=== PATIENT | female | born 1975 | race Hispanic/Latino ===

== ENCOUNTER 2018-01-11 06:22 | Day surgery (SDC) | payer OTHER ==
[2018-01-07 14:46] VITALS: BP 108/69
[2018-01-07 14:53] LABS: BASOPHILS % (AUTO) 0.5 % (0.0-5.0); EOSINOPHILS % (AUTO) 1.9 % (0.0-8.0); HEMATOCRIT 39.3 % (36-48); LYMPHOCYTES % (AUTO) 29.3 % (21.0-51.0); MEAN CORPUSCULAR HEMOGLOBIN 29.2 pg (27.0-33.0); MEAN CORPUSCULAR HGB CONC 34.1 g/dL (32.0-36.0); MEAN CORPUSCULAR VOLUME 85.6 fL (79-99); MONOCYTES % (AUTO) 6.1 % (3.0-13.0); NEUTROPHILS % (AUTO) 62.2 % (40.0-77.0); PLATELET COUNT (AUTO) 311 K/uL (130-400); RED BLOOD CELL COUNT(AUTO) 4.59 MIL/uL (4.00-5.50); RED CELL DISTRIBUTION WIDTH 13.5 % (11.0-15.5); WHITE BLOOD COUNT (AUTO) 7.3 K/uL (4.8-10.8)
[2018-01-07 15:08] LABS: ALBUMIN 3.8 g/dL (3.5-5.0); BILIRUBIN,DIRECT 0.1 mg/dL (0.0-0.3); BILIRUBIN,TOTAL 0.3 mg/dL (0.2-1.0); TOTAL PROTEIN, SERUM 7.1 g/dL (6.0-8.3)
[2018-01-07 15:38] LABS: APPEARANCE,URINE Clear (CLEAR); BILIRUBIN,URINE Negative (NEGATIVE); COLOR,URINE Dark Yellow (YELLOW); GLUCOSE, URINE (UA) Negative (NEGATIVE); KETONES,URINE Trace mg/dL (NEGATIVE); LEUKOCYTE ESTERASE ,URINE Trace (NEGATIVE); NITRATE,URINE Negative (NEGATIVE); OCCULT BLOOD,URINE Moderate (NEGATIVE); PROTEIN,URINE Trace (NEGATIVE)
[2018-01-07 15:48] LABS: BACTERIA,URINE None Seen /HPF (None Seen); MUCUS,URINE Moderate LPF (None Seen); RBC,URINE 0-1 /HPF (0-1); WBC,URINE 0-1 /HPF (0-1)
[~2018-01-11] VITALS: Ht 154.9 cm; Wt 70.0 kg
[2018-01-11] VITALS (12 sets, daily range): BP systolic 101–124; BP diastolic 62–79
[~2018-01-11 06:22] MED LIST: DOCU100C33 PO; ESOM40CA54 PO; KETO10TA2 PO; ONDA4TAB10 SL; TYL3 PO
[2018-01-11] MEDS ORDERED: HEPARIN SODIUM 1000UNIT/ML 10ML VIAL ONE (06:46)
[2018-01-11] MEDS ORDERED: LACTATED RINGERS 1000ML 1,000 ML IV ONE (06:48)
[2018-01-11] MEDS ORDERED: GLYCOPYRROLATE 0.2 MG/ML 5 ML VIAL ONE (07:35)
[2018-01-11] MEDS ORDERED: NEOSTIGMINE 5MG/5ML SYR IV ONE (07:35)
[2018-01-11] MEDS ORDERED: PROPOFOL 10 MG/ML 20ML VIAL IV ONE (07:35)
[2018-01-11] MEDS ORDERED: LIDOCAINE PF 2% 5ML ABBOJECT ONE (07:35)
[2018-01-11] MEDS ORDERED: ONDANSETRON HCL 4 MG/2 ML VIAL ONE (07:35)
[2018-01-11] MEDS ORDERED: MIDAZOLAM HCL 1 MG/ML 2ML VIAL ONE (07:35)
[2018-01-11] MEDS ORDERED: DEXAMETHASONE SOD PHOSPHATE 10MG/ML 1ML VIAL ONE (07:35)
[2018-01-11] MEDS ORDERED: SUCCINYLCHOLINE 200MG/10ML SYR ONE (07:35)
[2018-01-11] MEDS ORDERED: FENTANYL CITRATE PF 50 MCG/1 ML 2ML VIAL ONE ×2 (07:35→09:35)
[2018-01-11] MEDS ORDERED: MEPERIDINE-PF 25 MG/ML SYG ONE (09:18)
[2018-01-11] MEDS ORDERED: KETOROLAC TROMETHAMINE 30MG/ML ONE (09:30)
== END 2018-01-11 11:00 | disposition home or self-care (01) ==
LOC: DAH 06:22
PROVIDERS: ATTEND Surgery
DX: K80.10 Calculus of gallbladder with chronic cholecystitis without obstruction (principal); Z79.899 Other long term (current) drug therapy; Z88.0 Allergy status to penicillin; Z82.49 Family history of ischemic heart disease and other diseases of the circulatory system; E66.9 Obesity, unspecified; G43.909 Migraine, unspecified, not intractable, without status migrainosus
CPT/HCPCS: 36415 ×2; 47562; 80053; 80076; 81001 ×2; 84703; 85025 ×2; 88304; 96372; 96374; 96375; 96376; 99284; A4450; A4600; A4649; C1769 ×4; J0330; J1100; J1644; J1885; J2001; J2175; J2250; J2270 ×2; J2405; J2550 ×2; J2704; J2710; J3010 ×2; J3490 ×2; J7030; J7040; J7120 ×2

== ENCOUNTER 2018-01-11 16:33 | Emergency (ER) | payer OTHER ==
[2018-01-11] MEDS ORDERED: PROMETHAZINE HCL 25 MG/ML 1ML AMPULE IM ONE ×2 (16:57→22:00)
[2018-01-11] MEDS ORDERED: MORPHINE SULFATE 4 MG/1ML SYG ONE ×2 (16:58→22:00)
[2018-01-11] MEDS ORDERED: SODIUM CHLORIDE 0.9% IV ONE (16:58)
[2018-01-11 17:06] LABS: BASOPHILS % (AUTO) 0.2 % (0.0-5.0); EOSINOPHILS % (AUTO) 0.1 % (0.0-8.0); LYMPHOCYTES % (AUTO) 5.2 % (21.0-51.0); MEAN CORPUSCULAR HEMOGLOBIN 29.3 pg (27.0-33.0); MEAN CORPUSCULAR HGB CONC 34.9 g/dL (32.0-36.0); MEAN CORPUSCULAR VOLUME 83.9 fL (79-99); NEUTROPHILS % (AUTO) 93.5 % (40.0-77.0); PLATELET COUNT (AUTO) 275 K/uL (130-400); RED BLOOD CELL COUNT(AUTO) 4.42 MIL/uL (4.00-5.50); RED CELL DISTRIBUTION WIDTH 13.2 % (11.0-15.5); WHITE BLOOD COUNT (AUTO) 7.7 K/uL (4.8-10.8)
[2018-01-11 17:12] LABS: CREATININE 0.8 mg/dL (0.5-1.5); POTASSIUM 3.2 mmol/L (3.5-5.1)
[2018-01-11 17:17] LABS: ALBUMIN 3.7 g/dL (3.5-5.0); BILIRUBIN,TOTAL 0.6 mg/dL (0.2-1.0); TOTAL PROTEIN, SERUM 7.2 g/dL (6.0-8.3)
[2018-01-11] MEDS ORDERED: FAMOTIDINE/PF 20 MG/2 ML VIAL IV ONE (18:44)
[2018-01-11 19:22] LABS: APPEARANCE,URINE Clear (CLEAR); BILIRUBIN,URINE Negative (NEGATIVE); COLOR,URINE Yellow (YELLOW); GLUCOSE, URINE (UA) Negative (NEGATIVE); KETONES,URINE Negative (NEGATIVE); LEUKOCYTE ESTERASE ,URINE Negative (NEGATIVE); NITRATE,URINE Negative (NEGATIVE); OCCULT BLOOD,URINE Negative (NEGATIVE); PH,URINE 8.5 (5.0-8.0); PROTEIN,URINE Negative (NEGATIVE); UROBILINOGEN,URINE 0.2 mg/dL (0.2-1.0)
== END 2018-01-11 23:38 | disposition home or self-care (01) ==
LOC: EDH 16:33
DX: K91.0 Vomiting following gastrointestinal surgery (principal); Z88.0 Allergy status to penicillin; Z90.49 Acquired absence of other specified parts of digestive tract; Y83.8 Other surgical procedures as the cause of abnormal reaction of the patient, or of later complication, without mention of misadventure at the time of the procedure; Y82.8 Other medical devices associated with adverse incidents
CPT/HCPCS: 36415; 80053; 81001; 85025; 96372; 96374; 96375; 96376; 99284; J2270 ×2; J2550 ×2; J3490; J7040

== ENCOUNTER 2021-06-03 18:14 | Emergency (ER) | payer OTHER ==
[~2021-06-03] VITALS: Ht 154.9 cm; Wt 74.4 kg
[2021-06-03 18:15] VITALS: BP 164/85
[2021-06-03] MEDS ORDERED: DICYCLOMINE HCL 10 MG/5 ML ML PO ONE (19:30)
[2021-06-03] MEDS ORDERED: MAG/ALUM/SIMETH 30 ML UDCUP PO ONE (19:30)
[2021-06-03] MEDS ORDERED: FAMOTIDINE 20MG VIAL IV ONE (19:30)
[2021-06-03] MEDS ORDERED: LIDOCAINE HCL 2% VISCOUS 15 ML UDCUP PO ONE (19:30)
[2021-06-03] MEDS ORDERED: ONDANSETRON 4MG INJ IVP ONE (19:30)
[2021-06-03 19:41] LABS: BASOPHILS % (AUTO) 0.2 % (0.0-5.0); EOSINOPHILS % (AUTO) 0.5 % (0.0-8.0); HEMATOCRIT 41.8 % (36-48); LYMPHOCYTES % (AUTO) 27.3 % (21.0-51.0); MEAN CORPUSCULAR HEMOGLOBIN 29.5 pg (27.0-33.0); MEAN CORPUSCULAR VOLUME 86.7 fL (79-99); MONOCYTES % (AUTO) 6.9 % (3.0-13.0); NEUTROPHILS % (AUTO) 64.9 % (40.0-77.0); PLATELET COUNT (AUTO) 295 K/uL (130-400); RED BLOOD CELL COUNT(AUTO) 4.82 MIL/uL (4.00-5.50); RED CELL DISTRIBUTION WIDTH 12.8 % (11.0-15.5); WHITE BLOOD COUNT (AUTO) 8.3 K/uL (4.8-10.8)
[2021-06-03 20:00] LABS: CREATININE 0.8 mg/dL (0.5-1.5); POTASSIUM 3.6 mmol/L (3.5-5.1)
[2021-06-03 20:01] LABS: APPEARANCE,URINE Clear (CLEAR); BILIRUBIN,URINE Small (NEGATIVE); COLOR,URINE Dark Yellow (YELLOW); GLUCOSE, URINE (UA) Negative (NEGATIVE); KETONES,URINE >=160 mg/dL (NEGATIVE); LEUKOCYTE ESTERASE ,URINE Trace (NEGATIVE); NITRATE,URINE Negative (NEGATIVE); OCCULT BLOOD,URINE Negative (NEGATIVE); PROTEIN,URINE Trace mg/dL (NEGATIVE)
[2021-06-03 20:03] LABS: HCG,QUAL RESULT NEGATIVE (NEGATIVE)
[2021-06-03 20:04] LABS: ALBUMIN 4.4 g/dL (3.5-5.0); BILIRUBIN,TOTAL 1.1 mg/dL (0.2-1.0); TOTAL PROTEIN, SERUM 7.7 g/dL (6.0-8.3)
[2021-06-03 20:09] LABS: BACTERIA,URINE Few /HPF (None Seen); MUCUS,URINE Moderate LPF (None Seen); RBC,URINE 0-1 /HPF (0-1); SQUAMOUS EPITHELIAL CELL,UR Few /HPF (0-2)
[2021-06-03 20:12] VITALS: BP 135/88
[2021-06-03] MEDS ORDERED: DICY20TA2 PO (20:45)
[2021-06-03] MEDS ORDERED: FAMO-136 PO (20:45)
[2021-06-03] MEDS ORDERED: ONDA4TAB10 PO (20:45)
[2021-06-03 21:13] VITALS: BP 144/80
== END 2021-06-03 21:20 | disposition home or self-care (01) ==
LOC: EDH 18:14
DX: K29.70 Gastritis, unspecified, without bleeding (principal); K21.9 Gastro-esophageal reflux disease without esophagitis; Z79.899 Other long term (current) drug therapy; Z88.0 Allergy status to penicillin
CPT/HCPCS: 36415; 80053; 81001; 81025; 83690; 84484; 85025; 93005; 96374; 96375; 99284; J2405; J3490

== ENCOUNTER 2021-09-05 08:08 | Emergency (ER) | payer OTHER ==
[~2021-09-05] VITALS: Ht 154.9 cm; Wt 72.6 kg
[~2021-09-05 08:08] MED LIST changes: +DICY20TA2 PO; +FAMO-136 PO; +ONDA4TAB10 PO
[2021-09-05 08:34] LABS: BASOPHILS % (AUTO) 0.3 % (0.0-5.0); EOSINOPHILS % (AUTO) 1.8 % (0.0-8.0); HEMATOCRIT 44.4 % (36-48); LYMPHOCYTES % (AUTO) 22.3 % (21.0-51.0); MEAN CORPUSCULAR HEMOGLOBIN 29.2 pg (27.0-33.0); MEAN CORPUSCULAR HGB CONC 33.6 g/dL (32.0-36.0); MEAN CORPUSCULAR VOLUME 86.9 fL (79-99); MONOCYTES % (AUTO) 7.8 % (3.0-13.0); NEUTROPHILS % (AUTO) 67.5 % (40.0-77.0); PLATELET COUNT (AUTO) 279 K/uL (130-400); RED BLOOD CELL COUNT(AUTO) 5.11 MIL/uL (4.00-5.50); WHITE BLOOD COUNT (AUTO) 6.6 K/uL (4.8-10.8)
[2021-09-05 08:49] LABS: CREATININE 0.8 mg/dL (0.5-1.5); POTASSIUM 3.5 mmol/L (3.5-5.1)
[2021-09-05 08:58] LABS: ALBUMIN 4.2 g/dL (3.5-5.0); BILIRUBIN,TOTAL 0.5 mg/dL (0.2-1.0); TOTAL PROTEIN, SERUM 7.7 g/dL (6.0-8.3)
[2021-09-05] MEDS ORDERED: DICYCLOMINE HCL 10 MG/5 ML ML PO ONE (09:00)
[2021-09-05] MEDS ORDERED: LIDOCAINE HCL 2% VISCOUS 15 ML UDCUP PO ONE (09:00)
[2021-09-05] MEDS ORDERED: MAG/ALUM/SIMETH 30 ML UDCUP PO ONE (09:00)
[2021-09-05 09:05] LABS: APPEARANCE,URINE Clear (CLEAR); BILIRUBIN,URINE Negative (NEGATIVE); COLOR,URINE Dark Yellow (YELLOW); GLUCOSE, URINE (UA) Negative (NEGATIVE); KETONES,URINE Trace mg/dL (NEGATIVE); LEUKOCYTE ESTERASE ,URINE Trace (NEGATIVE); NITRATE,URINE Negative (NEGATIVE); OCCULT BLOOD,URINE Negative (NEGATIVE); PH,URINE 5.5 (5.0-8.0); PROTEIN,URINE Negative (NEGATIVE)
[2021-09-05 09:06] LABS: HCG,QUAL RESULT NEGATIVE (NEGATIVE)
[2021-09-05 09:19] LABS: BACTERIA,URINE Rare /HPF (None Seen); MUCUS,URINE Few LPF (None Seen); RBC,URINE 0-1 /HPF (0-1); SQUAMOUS EPITHELIAL CELL,UR Few /HPF (0-2)
[2021-09-05 09:29] LABS: B-TYPE NATRIURETIC PEPTIDE 5 pg/mL (0-100)
[2021-09-05 09:30] VITALS: BP 133/90
[2021-09-05] MEDS ORDERED: MAG-55 PO (09:32)
== END 2021-09-05 09:48 | disposition home or self-care (01) ==
LOC: EDH 08:08
DX: K29.70 Gastritis, unspecified, without bleeding (principal); K21.9 Gastro-esophageal reflux disease without esophagitis; Z88.0 Allergy status to penicillin; Z79.899 Other long term (current) drug therapy
CPT/HCPCS: 36415; 71045; 80053; 81001; 81025; 82550; 83874; 83880; 84484; 85025; 93005

== ENCOUNTER 2024-08-06 20:40 | Emergency (ER) | payer BC, OTHER ==
[~2024-08-06] VITALS: Ht 154.9 cm; Wt 70.3 kg
[~2024-08-06 20:40] MED LIST changes: -ESOM40CA54 PO; +ESOM40CA66 PO; +MAG-55 PO; +ONDA-243 PO; +ONDA-243 SL; -ONDA4TAB10 PO; -ONDA4TAB10 SL
[2024-08-06 21:23] LABS: BASOPHILS # (AUTO) 0.02 K/uL (0.00-0.20); BASOPHILS % (AUTO) 0.3 % (0.0-5.0); EOSINOPHILS # (AUTO) 0.09 K/uL (0.00-0.70); EOSINOPHILS % (AUTO) 1.4 % (0.0-8.0); HEMATOCRIT 41.4 % (36-48); IMMATURE GRANULOCYTE ABSOLUTE 0.01 K/uL (0-1); LYMPHOCYTES # (AUTO) 2.7 K/uL (1.0-4.8); LYMPHOCYTES % (AUTO) 42.1 % (21.0-51.0); MEAN CORPUSCULAR HGB CONC 34.3 g/dL (32.0-36.0); MEAN CORPUSCULAR VOLUME 84.7 fL (79-99); MONOCYTES # (AUTO) 0.5 K/uL (0.1-1.0); MONOCYTES % (AUTO) 7.9 % (3.0-13.0); NEUTROPHILS # (AUTO) 3.1 K/uL (1.8-7.7); NEUTROPHILS % (AUTO) 48.1 % (40.0-77.0); PLATELET COUNT (AUTO) 233 K/uL (130-400); RED BLOOD CELL COUNT(AUTO) 4.89 MIL/uL (4.00-5.50); RED CELL DISTRIBUTION WIDTH 11.9 % (11.0-15.5); WHITE BLOOD COUNT (AUTO) 6.4 K/uL (4.8-10.8)
[2024-08-06] MEDS: ondanSETRON 4MG INJ IVP ONE (21:31)
[2024-08-06] MEDS: PANTOPrazole 40 MG/VIAL IVP ONE (21:31)
[2024-08-06] MEDS: LACTATED RINGERS 1000ML 1,000 ML IV ONE (21:32)
[2024-08-06 21:46] LABS: BILIRUBIN,TOTAL 0.6 mg/dL (0.2-1.0); CREATININE 0.9 mg/dL (0.5-1.0); MAGNESIUM 1.8 mg/dL (1.80-2.40); TOTAL PROTEIN, SERUM 7.1 g/dL (6.0-8.3)
[2024-08-06 21:50] LABS: POTASSIUM 2.9 mmol/L (3.5-5.1)
[2024-08-06 21:56] LABS: APPEARANCE,URINE CLEAR (CLEAR); BILIRUBIN,URINE NEGATIVE (NEGATIVE); COLOR,URINE LIGHT-YELLOW (YELLOW); GLUCOSE, URINE (UA) NEGATIVE (NEGATIVE); KETONES,URINE NEGATIVE (NEGATIVE); LEUKOCYTE ESTERASE ,URINE NEGATIVE Leu/uL (NEGATIVE); NITRATE,URINE NEGATIVE (NEGATIVE); OCCULT BLOOD,URINE NEGATIVE (NEGATIVE); PH,URINE 7.5 (5.0-8.0); PROTEIN,URINE NEGATIVE (NEGATIVE); UROBILINOGEN,URINE 0.2 mg/dL (0.2-1.0)
[2024-08-06 21:58] LABS: ADD UA MICROSCOPIC NO
[2024-08-06 22:03] LABS: AMPHET/METH SCREEN,URINE NEGATIVE (NEGATIVE); BARBITURATE SCREEN, URINE NEGATIVE (NEGATIVE); BENZODIAZEPINES SCREEN,URINE NEGATIVE (NEGATIVE); CANNABINOID SCREEN,URINE POSITIVE (NEGATIVE); COCAINE SCREEN,URINE NEGATIVE (NEGATIVE); OPIATE SCREEN,URINE NEGATIVE (NEGATIVE); PHENCYCLIDINE SCREEN,URINE NEGATIVE (NEGATIVE)
[2024-08-06] MEDS: PoTASSium BIcarbonate/CIT AC 25 MEQ TABLET.EFF PO ONE (22:03)
[2024-08-06] MEDS: PoTASSium chloRIDE 10MEQ/100ML 100 ML IV ONE (22:03)
[2024-08-06] MEDS: ketOROlac 30MG VIAL (30MG/ML) IM ONE (22:36)
[2024-08-06 23:15] VITALS: BP 130/68; PULSE 92; RESP 19; TEMP 98.5; O2SAT 98
[2024-08-07] MEDS: DICYCLOMINE 20MG (10MG/ML) AMP IM ONE (01:15)
[2024-08-07] MEDS ORDERED: PANT40TA55 PO (01:39)
[2024-08-07] MEDS ORDERED: DICY10 PO (01:39)
== END 2024-08-07 01:58 | disposition home or self-care (01) ==
LOC: EDH 20:40
DX: K29.70 Gastritis, unspecified, without bleeding (principal); I88.9 Nonspecific lymphadenitis, unspecified; K21.9 Gastro-esophageal reflux disease without esophagitis; I10 Essential (primary) hypertension; Z79.899 Other long term (current) drug therapy; Z88.0 Allergy status to penicillin; Z90.49 Acquired absence of other specified parts of digestive tract
CPT/HCPCS: 99284; 96374; 96361; 96375; 82270; 82550; 83735; 84484; 80053; 80305; 83690; 85025; 81025; 36415; 93005; 81003; 96372 ×2; 74176; J7120; J2405; J1885; J2470; J3480; J0500